=== PATIENT | female | born 1950 | race African-American/Black ===

== ENCOUNTER 2017-06-23 10:34 | Emergency (ER) | payer MEDICARE, OTHER ==
[~2017-06-23] VITALS: Ht 152.4 cm; Wt 76.2 kg
[2017-06-23 11:55] VITALS: BP 144/74
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
--- NOTE | 2017-06-23 13:27 | RAD ---
Exam performed: 3 views right wrist. History: Patient fell today with right wrist pain. Date of service: 06/23/17. Comparison: None available 3 views right wrist findings: There is a nondisplaced impacted fracture distal right radius with diffuse soft tissue swelling. The remainder alignment appears preserved. No soft tissue foreign body seen. Impression: Nondisplaced acute intra-articular fracture distal right radius.
[2017-06-23] MEDS ORDERED: IBUP-1007 PO (14:36)
== END 2017-06-23 14:50 | disposition home or self-care (01) ==
LOC: ER 10:34
DX: S52.501A Unspecified fracture of the lower end of right radius, initial encounter for closed fracture (principal); I10 Essential (primary) hypertension; J44.9 Chronic obstructive pulmonary disease, unspecified; F20.9 Schizophrenia, unspecified; F17.200 Nicotine dependence, unspecified, uncomplicated; W20.8XXA Other cause of strike by thrown, projected or falling object, initial encounter; Y93.89 Activity, other specified; Y99.8 Other external cause status; Y92.89 Other specified places as the place of occurrence of the external cause
CPT/HCPCS: 29125; 73110; 99284-25

== ENCOUNTER 2017-12-31 05:24 | Inpatient (IN) | payer MEDICARE, OTHER ==
[2017-12-31 05:52] LABS: ADD MAN DIFF? NO
[2017-12-31 05:57] LABS: BASO # 0.1 x10^3/uL (0.0-0.2); BASO % 1 % (0-3); EOS # 0.1 x10^3/uL (0.0-0.7); EOS % 1 % (0-3); HEMATOCRIT 49.6 % (36.0-47.0); HEMOGLOBIN 16.7 g/dL (12.0-15.5); LYMPH # 2.5 x10^3/uL (1.0-4.8); LYMPH % 22 % (24-48); MEAN CORPUSCULAR HEMOGLOBIN 28 pg (25-35); MEAN CORPUSCULAR HGB CONC 34 g/dL (31-37); MEAN CORPUSCULAR VOLUME 82 fL (79-100); MONO # 0.9 x10^3/uL (0.0-1.1); MONO % 8 % (0-9); NEUT # 7.9 x10^3uL (1.8-7.7); NEUT % 69 % (31-73); PLATELET COUNT 206 x10^3/uL (140-400); RED BLOOD COUNT 6.04 x10^6/uL (3.50-5.40); RED CELL DISTRIBUTION WIDTH 14.6 % (11.5-14.5); WHITE BLOOD COUNT 11.5 x10^3/uL (4.0-11.0)
[2017-12-31 06:09] LABS: ANION GAP 14 (6-14); BLOOD UREA NITROGEN 16 mg/dL (7-20); CALCIUM 9.7 mg/dL (8.5-10.1); CARBON DIOXIDE 24 mmol/L (21-32); CHLORIDE 102 mmol/L (98-107); CREATININE 0.9 mg/dL (0.6-1.0); GFR 75.1; GLUCOSE 98 mg/dL (70-99); POTASSIUM 3.7 mmol/L (3.5-5.1); SODIUM 140 mmol/L (136-145)
[2017-12-31 06:17] LABS: ACETAMIN < 2 mcg/ml (10-30)
[2017-12-31 06:18] LABS: TROPONINI < 0.017 ng/mL (0.000-0.055)
[2017-12-31] MEDS: THIAMINE 100 MG in IV DEXTROSE 5% 50 ML IV (06:30)
[2017-12-31] MEDS: IV NORMAL SALINE 1000ML BAG 1,000 ML IV ×3 (06:30→20:15)
[2017-12-31 06:32] LABS: BARBITURATES NEG (NEG); BENZODIAZEPINES POS (NEG); CANNABINOIDS NEG (NEG); COCAINE NEG (NEG); METHADONE NEG (NEG); OPIATES POS (NEG); PHENCYCLIDINE NEG (NEG)
[2017-12-31 06:34] LABS: AMPHETAMINE/METHAMPHETAMINE NEG (NEG); ETHANOL, URINE NEG (NEG)
[2017-12-31] MEDS: ZIPRASIDONE 20 MG CAPSULE PO ×2 (08:28→08:38)
[2017-12-31 08:53] LABS: BILIRUBIN,URINE MODERATE (NEG); CLARITY,URINE CLEAR; COLOR,URINE AMBER; GLUCOSE,URINE NEGATIVE (NEG); NITRITE,URINE NEGATIVE (NEG); PROTEIN,URINE NEGATIVE (NEG-TRACE); UROBILINOGEN,URINE 0.2 mg/dL (0.2 mg/dL)
[2017-12-31 09:24] LABS: BACTERIA,URINE FEW /HPF (0-FEW); HYALINE CASTS, URINE OCCASIONAL /HPF; SQUAMOUS EPITHELIAL CELL,UR FEW /LPF
[2017-12-31] MEDS ORDERED: ONDANSETRON PF 4 MG/2 ML VIAL. IV ×2 (09:45→15:45)
[2017-12-31] MEDS ORDERED: ACETAMINOPHEN 325 MG TABLET. PO (09:45)
[2017-12-31] MEDS: HALOPERIDOL LACTATE 5 MG/ML VIAL. IVP ×2 (09:59→19:26)
[2017-12-31] MEDS: CIPROFLOXACIN 400MG PREMIX 200 ML IV ×2 (10:00→20:14)
[2017-12-31] MEDS: LACTOBACILLUS RHAMNOSUS GG 1 CAPSULE. PO ×2 (11:00→20:15)
[2017-12-31] MEDS ORDERED: INFLUENZA VAX SCREEN BY RX. MC (11:15)
[2017-12-31] MEDS ORDERED: C.DIFF MED SCREEN BY RX. MC (11:15)
[2017-12-31] MEDS ORDERED: PNEUMOCOCCAL VAX SCREEN BY RX. MC (11:15)
[2017-12-31] MEDS: PNEUMOC CONJ VACC 23-VALENT 0.5 ML VIAL. VAX IM (13:30)
[2017-12-31] MEDS ORDERED: MORPHINE SULFATE 4 MG/ML DISP.SYRIN. IV (15:45)
[2017-12-31] MEDS ORDERED: ALBUTEROL SULFATE 2.5 MG/3 ML NEBU. NEB (15:45)
[2017-12-31] MEDS ORDERED: DOCUSATE SODIUM 100 MG CAPSULE. PO (15:45)
[2017-12-31] MEDS ORDERED: hydrALAZINE 20 MG/ML VIAL. IVP (15:45)
[2017-12-31] MEDS ORDERED: HALOPERIDOL LACTATE 5 MG/ML VIAL. IVP (16:15)
[2017-12-31] MEDS: PROPRANOLOL 40 MG TABLET. PO (20:15)
[2017-12-31] MEDS: traZODone 50 MG TABLET. PO (20:15)
[2017-12-31] MEDS: LURASIDONE 40 MG TABLET. PO (20:15)
[2017-12-31] MEDS: FLUTICASONE 50MCG/NASAL SPRAY 16GM BOTTLE. NS (20:16)
[2018-01-01] MEDS: IV NORMAL SALINE 1000ML BAG 1,000 ML IV (01:37)
[2018-01-01 05:20] LABS: ADD MAN DIFF? NO
[2018-01-01 05:45] LABS: BASO % 0 % (0-3); EOS # 0.1 x10^3/uL (0.0-0.7); EOS % 1 % (0-3); HEMATOCRIT 43.6 % (36.0-47.0); HEMOGLOBIN 14.2 g/dL (12.0-15.5); LYMPH % 34 % (24-48); MEAN CORPUSCULAR HEMOGLOBIN 27 pg (25-35); MEAN CORPUSCULAR HGB CONC 33 g/dL (31-37); MEAN CORPUSCULAR VOLUME 84 fL (79-100); MONO # 0.9 x10^3/uL (0.0-1.1); MONO % 10 % (0-9); NEUT # 4.9 x10^3uL (1.8-7.7); NEUT % 55 % (31-73); PLATELET COUNT 163 x10^3/uL (140-400); RED BLOOD COUNT 5.19 x10^6/uL (3.50-5.40)
[2018-01-01 06:02] LABS: ANION GAP 7 (6-14); BLOOD UREA NITROGEN 8 mg/dL (7-20); CALCIUM 8.6 mg/dL (8.5-10.1); CARBON DIOXIDE 29 mmol/L (21-32); CHLORIDE 108 mmol/L (98-107); CREATININE 0.7 mg/dL (0.6-1.0); GFR 100.4; GLUCOSE 96 mg/dL (70-99); POTASSIUM 3.5 mmol/L (3.5-5.1); SODIUM 144 mmol/L (136-145)
[2018-01-01] MEDS: HALOPERIDOL LACTATE 5 MG/ML VIAL. IVP (07:34)
[2018-01-01] MEDS: THIAMINE 100 MG in IV DEXTROSE 5% 50 ML IV (08:49)
[2018-01-01] MEDS: FLUTICASONE 50MCG/NASAL SPRAY 16GM BOTTLE. NS ×2 (08:50→20:22)
[2018-01-01] MEDS: LOSARTAN POTASSIUM 25 MG TABLET. PO (08:56)
[2018-01-01] MEDS: LACTOBACILLUS RHAMNOSUS GG 1 CAPSULE. PO ×2 (08:56→20:21)
[2018-01-01] MEDS: FOLIC ACID 1 MG TABLET. PO (08:57)
[2018-01-01] MEDS: LOXAPINE SUCCINATE 5 MG CAPSULE PO (08:57)
[2018-01-01] MEDS: MULTIVITAMIN with MINERAL TABLET. PO (08:57)
[2018-01-01] MEDS: amLODIPine BESYLATE 5 MG TABLET PO (08:57)
[2018-01-01] MEDS: PROPRANOLOL 40 MG TABLET. PO ×2 (08:57→20:22)
[2018-01-01] MEDS: NITROFURANTOIN MONOHYD/M-CRYST 100 MG CAPSULE. PO ×2 (08:57→20:22)
[2018-01-01] MEDS ORDERED: MULTIVIT INFUSN,ADULT 4,VIT K 10 ML, THIAMINE 100 MG, FOLIC ACID 1 MG in IV NORMAL SALI... IV (09:00)
[2018-01-01] MEDS: LURASIDONE 40 MG TABLET. PO (20:20)
[2018-01-01] MEDS: traZODone 50 MG TABLET. PO (20:20)
[2018-01-02] MEDS: HALOPERIDOL LACTATE 5 MG/ML VIAL. IVP (02:23)
[2018-01-02] MEDS: LOXAPINE SUCCINATE 5 MG CAPSULE PO (08:13)
[2018-01-02] MEDS: NITROFURANTOIN MONOHYD/M-CRYST 100 MG CAPSULE. PO ×2 (08:13→21:00)
[2018-01-02] MEDS: PROPRANOLOL 40 MG TABLET. PO ×2 (08:13→21:00)
[2018-01-02] MEDS: LACTOBACILLUS RHAMNOSUS GG 1 CAPSULE. PO ×2 (08:14→21:00)
[2018-01-02] MEDS: FOLIC ACID 1 MG TABLET. PO (08:14)
[2018-01-02] MEDS: LOSARTAN POTASSIUM 25 MG TABLET. PO (08:14)
[2018-01-02] MEDS: MULTIVITAMIN with MINERAL TABLET. PO (08:14)
[2018-01-02] MEDS: amLODIPine BESYLATE 5 MG TABLET PO (08:15)
[2018-01-02] MEDS: THIAMINE 100 MG in IV DEXTROSE 5% 50 ML IV (08:19)
[2018-01-02] MEDS: FLUTICASONE 50MCG/NASAL SPRAY 16GM BOTTLE. NS ×2 (08:19→21:00)
[2018-01-02] MEDS: HALOPERIDOL 2 MG TABLET. PO (12:12)
[2018-01-02] MEDS: traZODone 50 MG TABLET. PO (19:37)
[2018-01-02] MEDS: LORazepam 1 MG TABLET PO ×2 (19:38→21:17)
[2018-01-02] MEDS: LURASIDONE 40 MG TABLET. PO (21:00)
[2018-01-03] MEDS: LACTOBACILLUS RHAMNOSUS GG 1 CAPSULE. PO ×2 (09:00→21:00)
[2018-01-03] MEDS: LOSARTAN POTASSIUM 25 MG TABLET. PO (09:00)
[2018-01-03] MEDS: FLUTICASONE 50MCG/NASAL SPRAY 16GM BOTTLE. NS ×2 (09:00→21:00)
[2018-01-03] MEDS: FOLIC ACID 1 MG TABLET. PO (09:00)
[2018-01-03] MEDS: LOXAPINE SUCCINATE 5 MG CAPSULE PO (09:00)
[2018-01-03] MEDS: amLODIPine BESYLATE 5 MG TABLET PO (09:00)
[2018-01-03] MEDS: THIAMINE 100 MG in IV DEXTROSE 5% 50 ML IV (09:00)
[2018-01-03] MEDS: PROPRANOLOL 40 MG TABLET. PO ×2 (09:00→21:00)
[2018-01-03] MEDS: MULTIVITAMIN with MINERAL TABLET. PO (09:00)
[2018-01-03 17:11] LABS: THYROID STIM HORMONE (TSH) 0.833 uIU/mL (0.358-3.74)
[2018-01-03] MEDS: LURASIDONE 40 MG TABLET. PO (21:00)
[2018-01-03] MEDS: traZODone 50 MG TABLET. PO ×2 (21:00→22:19)
[2018-01-03] MEDS: ACETAMINOPHEN 325 MG TABLET. PO (22:20)
[2018-01-04 08:55] LABS: VITAMIN-B12 595 pg/mL (247-911)
[2018-01-04] MEDS: FLUTICASONE 50MCG/NASAL SPRAY 16GM BOTTLE. NS ×2 (09:00→21:16)
[2018-01-04] MEDS: FOLIC ACID 1 MG TABLET. PO (09:02)
[2018-01-04] MEDS: LORazepam 1 MG TABLET PO (09:02)
[2018-01-04] MEDS: LOXAPINE SUCCINATE 5 MG CAPSULE PO (09:02)
[2018-01-04] MEDS: amLODIPine BESYLATE 5 MG TABLET PO (09:03)
[2018-01-04] MEDS: PROPRANOLOL 40 MG TABLET. PO ×2 (09:03→21:16)
[2018-01-04] MEDS: MULTIVITAMIN with MINERAL TABLET. PO (09:03)
[2018-01-04] MEDS: LOSARTAN POTASSIUM 25 MG TABLET. PO (09:03)
[2018-01-04] MEDS: LACTOBACILLUS RHAMNOSUS GG 1 CAPSULE. PO ×2 (09:04→21:17)
[2018-01-04] MEDS: THIAMINE 100 MG TABLET. PO (09:12)
[2018-01-04] MEDS: QUEtiapine 25 MG TABLET. PO (16:42)
[2018-01-04] MEDS: LURASIDONE 40 MG TABLET. PO (21:16)
[2018-01-04] MEDS: traZODone 50 MG TABLET. PO (21:17)
[2018-01-05] MEDS: THIAMINE 100 MG TABLET. PO (09:00)
[2018-01-05] MEDS: FLUTICASONE 50MCG/NASAL SPRAY 16GM BOTTLE. NS ×2 (09:00→20:40)
[2018-01-05] MEDS: LOSARTAN POTASSIUM 25 MG TABLET. PO (09:00)
[2018-01-05] MEDS: PROPRANOLOL 40 MG TABLET. PO ×2 (09:00→20:41)
[2018-01-05] MEDS: LACTOBACILLUS RHAMNOSUS GG 1 CAPSULE. PO ×2 (09:00→20:41)
[2018-01-05] MEDS: amLODIPine BESYLATE 5 MG TABLET PO (09:00)
[2018-01-05] MEDS: QUEtiapine 25 MG TABLET. PO (10:30)
[2018-01-05] MEDS: LOXAPINE SUCCINATE 5 MG CAPSULE PO (10:31)
[2018-01-05] MEDS: traZODone 50 MG TABLET. PO (20:41)
[2018-01-05] MEDS: LURASIDONE 40 MG TABLET. PO (20:41)
[2018-01-06] MEDS: HALOPERIDOL LACTATE 5 MG/ML VIAL. IM (03:26)
[2018-01-06] MEDS: PROPRANOLOL 40 MG TABLET. PO ×2 (09:00→20:43)
[2018-01-06] MEDS: LOXAPINE SUCCINATE 5 MG CAPSULE PO (09:25)
[2018-01-06] MEDS: QUEtiapine 25 MG TABLET. PO (09:26)
[2018-01-06] MEDS: LACTOBACILLUS RHAMNOSUS GG 1 CAPSULE. PO ×2 (09:26→20:43)
[2018-01-06] MEDS: FLUTICASONE 50MCG/NASAL SPRAY 16GM BOTTLE. NS ×2 (09:27→21:00)
[2018-01-06] MEDS: THIAMINE 100 MG TABLET. PO (09:27)
[2018-01-06] MEDS: amLODIPine BESYLATE 5 MG TABLET PO (09:27)
[2018-01-06] MEDS: HALOPERIDOL 5 MG TABLET. PO ×2 (09:40→14:35)
[2018-01-06] MEDS: traMADol 50 MG TABLET PO (20:42)
[2018-01-06] MEDS: LURASIDONE 40 MG TABLET. PO (20:42)
[2018-01-06] MEDS: traZODone 50 MG TABLET. PO (20:45)
[2018-01-07] MEDS: PROPRANOLOL 40 MG TABLET. PO (10:58)
[2018-01-07] MEDS: amLODIPine BESYLATE 5 MG TABLET PO (10:58)
[2018-01-07] MEDS: QUEtiapine 25 MG TABLET. PO (10:59)
[2018-01-07] MEDS: LACTOBACILLUS RHAMNOSUS GG 1 CAPSULE. PO (10:59)
[2018-01-07] MEDS: LOXAPINE SUCCINATE 5 MG CAPSULE PO (10:59)
[2018-01-07] MEDS: THIAMINE 100 MG TABLET. PO (10:59)
[2018-01-07] MEDS: FLUTICASONE 50MCG/NASAL SPRAY 16GM BOTTLE. NS (11:01)
[2018-01-07] MEDS: FLU VACC QS2017-18 (36MOS+)/PF 0.5 ML SYRINGE. VAX IM (11:04)
== END 2018-01-07 16:15 | disposition short-term general hospital (02) | DRG 885 ==
LOC: ER 05:24 → 6 SOUTH 09:51
DX: F20.9 Schizophrenia, unspecified (principal); G93.41 Metabolic encephalopathy; G21.19 Other drug induced secondary parkinsonism; J44.9 Chronic obstructive pulmonary disease, unspecified; N39.0 Urinary tract infection, site not specified; K13.0 Diseases of lips; Z90.710 Acquired absence of both cervix and uterus; I10 Essential (primary) hypertension; Z82.49 Family history of ischemic heart disease and other diseases of the circulatory system; Z91.83 Wandering in diseases classified elsewhere; F10.20 Alcohol dependence, uncomplicated; F32.9 Major depressive disorder, single episode, unspecified; F31.9 Bipolar disorder, unspecified; F11.10 Opioid abuse, uncomplicated; M54.5 Low back pain
CPT/HCPCS: 36415; 51701; 70450; 71045; 80048; 80307; 80329; 81001; 82306; 82607; 84443; 84484; 85025; 87086; 93005; 95816; 96365; 96367; 96375; 96376; 99285; 99285-25; J0744; J1630; J2060; J7030